=== PATIENT | female | born 1975 | race Native Hawaiian/Other Pacific Islander ===

== ENCOUNTER 2022-08-13 08:52 | Outpatient (CLI) | payer OTHER | END 2022-08-13 19:23 | disposition home or self-care (01) | LOC: MAMMO 08:52 | PROVIDERS: ATTEND Obstetrics & Gynecology | DX: Z12.31 Encounter for screening mammogram for malignant neoplasm of breast (principal) ==

== ENCOUNTER 2022-09-14 11:50 | Outpatient (CLI) | payer OTHER | END 2022-09-14 20:21 | disposition home or self-care (01) | LOC: MAMMO 11:50 | PROVIDERS: ATTEND Obstetrics & Gynecology | DX: R92.2 Inconclusive mammogram (principal) ==